=== PATIENT | female | born 1945 | race Caucasian/White ===

== ENCOUNTER 2016-09-18 11:48 | Day surgery (SDC) | payer MEDICARE, OTHER ==
[~2016-09-18] VITALS: Ht 175.3 cm; Wt 120.0 kg
[~2016-09-18 11:48] MED LIST: CHOL40003 PO; CYCL1DRO OCULAR; DILT360C30 PO; DULO60CA61 PO; FLAX100038 PO; FUR20 PO; LOSA100T29 PO; LOVA40TA PO; Lactated Ringer's 1,000 ML IV ONE; MAGN400T4 PO; MULT-1018 PO; SPIR50TA2 PO; TRIA10.8 NS
[2016-09-18] MEDS ORDERED: Propofol 10,000 mCg/mL 20 mL Inj ONE (11:49)
[2016-09-18] MEDS ORDERED: fentaNYL-PF 50 mCg/mL 2 mL Inj ONE (11:49)
--- NOTE | 2016-09-18 12:56 | PCM.HPANE ---
Patient Data Surgeon Admitting Provider: Attending Provider:Akhil Huff MD Primary Care Physician:Homar Santoyo MD Other Provider:Michelle Reynoldsingham Anesthesia Reason for Visit Diarrhea Ht/WT & BMI Body Mass Index Allergies Coded Allergies: TAPE (Verified Allergy, Unknown, REACTION TO IT, 12/15/05) hydrocodone (Verified Adverse Reaction, Mild, N/V, 05/17/09) Past Anesthesia History Anesthesia History: Denies:: Anesthesia Reactions Diabetes History Hx Diabetes?: No MRSA MRSA: No Medications Reported Medications Cholecalciferol (Vitamin D3) (Vitamin D3)4,000 Unit Capsule4,000 Unit PO DAILY 09/17/16 Spironolactone 50 Mg Kmnnkg01 Mg PO DAILY #30 TABLET Ref 0 09/17/16 Cyclosporine (Restasis)1 Each Droperette1 Each OCULAR BID 09/17/16 Triamcinolone Acetonide (Nasacort)10.8 Ml Spray55 Mcg NS DAILY 09/17/16 Multivitamin (Multi Vitamin Daily)1 Each Tablet1 Each PO DAILY 30 Days Ref 0 09/17/16 Lovastatin 40 Mg Hwvnfp78 Mg PO HS #30 TABLET Ref 0 09/17/16 Losartan Potassium 100 Mg Uzmqti697 Mg PO DAILY 09/17/16 Furosemide 20 Mg Tab20 Mg PO DAILY 30 Days Ref 0 09/17/16 Flaxseed Oil ([place]-3 Flaxseed Oil)1,000 Mg Capsule1,300 Mg PO DAILY 09/17/16 Duloxetine 60 Mg Capsule.dr60 Mg PO DAILY Ref 0 09/17/16 Diltiazem ER 360 Mg Capsule.er360 Mg PO DAILY Ref 0 09/17/16 Discontinued Reported Medications Magnesium Oxide 400 Mg Huvbvg010 Mg PO DAILY 09/17/16 History History of ENT Problems?: Yes HEENT History: Positive for:: Sinus Problem (intermittent) Denies:: Cataracts Dysphagia Cardiovascular History: Positive for:: Edema (hands swell recently) Heart Murmur Hypertension (takes diovan for BP) Denies:: Cardiac Surgery Chest Pain Congestive Heart Failure Irregular Heartbeat Pacemaker Thrombophlebitis Respiratory History: Positive for:: Pneumonia (walking pneumonia several times , last in 6-8 yrs) Denies:: Asthma COPD Chest Surgery Dyspnea Emphysema Hemoptysis Tuberculosis Hx Neurologic Problems?: No Neurological History: Positive for:: Headaches (occasional) Denies:: Alzheimer's Disease CVA Dementia Dizziness Parkinson's Disease Seizures Hx of GI Problems?: Yes Gastrointestinal History: Positive for:: Diverticulitis Heartburn (takes prilosec) Denies:: Gastrointestinal Bleeding Hepatitis Hiatal Hernia Rectal Bleeding Genitourinary History: Positive for:: Kidney Stones (had in last aug) Urinary Tract Infection Female Hx: Denies:: Endometriosis Pelvic Inflammatory Musculoskeletal History: Positive for:: Back Injury (last 6 months increased back pain) Denies:: Joint Replacement Musculoskeletal Trauma Psycho Social History: Positive for:: Anxiety (takes trazadone PRN) Denies:: Bipolar Disorder Hx Depression Hx Surgeries?: Yes (gallstones, kidney stones. laminectomy, ovarian cyst removed,polyp on vocal) Other History: Positive for:: Hospitalization (gallstones and kidney stones most recently 2004) Denies:: Cancer Thyroid Disease History Blood Transfusions: Denies:: Blood Transfusions Hx Diabetes: No Hx Alcohol Use: Yes (1 or two glasses of wine or beer a week)Hx Substance Use: No Stop/Bang Risk Assessment Category Category 1A: Patient has history of documented sleep apnea, and HAS NOT received any narcotic, sedative or anesthesia administration during this stay. Category 1B: Patient has history of documented sleep apnea, and HAS received any narcotic , sedative or anesthesia administration during this stay Category 2: Patient has SUSPECTED Obstructive Sleep Apnea, and HAS received any narcotic , sedative or anesthesia administration during this stay. Category 3: Patient has SUSPECTED Obstructive Sleep Apnea and HAS NOT received narcotic, sedative or anesthesia administration during this stay. Category 4: Outpatient in Procedural Areas with known sleep apnea or who screen positive for High Risk via the STOP/BANG questionnaire. Exam Exam General Appearance: Alert, Oriented X3, Cooperative, No Acute Distress HEENT/AIRWAY: MP 2 Lungs: Clear to Auscultation Heart: Exam Unremarkable Plan Impression Patient chart reviewed, patient interviewed and anesthestic plan with risks, benefits, and alternatives discussed, and informed consent obtained. ASA Physical Status: ASA2 Mod Systemic Disease Anesthetic Plan: MAC Bene/Risks/Altern/Consents: Yes HP Complete Prior to Induction: Yes Cy Tyler MD Sep 18, 2016 08:12
[2016-09-18 13:02] VITALS: BP 120/47; PULSE 54; RESP 16; O2SAT 94
[2016-09-18 13:30] VITALS: BP 102/54; PULSE 48; RESP 14; O2SAT 96
--- NOTE | 2016-09-18 13:34 | PCM.ANEP2 ---
Post Anesthesia Evaluation ASA/CMS Post Anesthesia VS in Patient's Normal Range?: Yes Resp Stable; Airway Patent?: Yes CV Function & Hydration Stable: Yes Mental Status Recovered?: Yes Pain control Satisfactory?: Yes N/V Control Satisfactory?: Yes Cy Tyler MD Sep 18, 2016 13:33
[2016-09-18 13:40] VITALS: BP 115/54; PULSE 50; RESP 14; O2SAT 94
--- NOTE | 2016-09-18 13:41 | ENDO ---
[address] [address] ENDOSCOPY PROCEDURE PATIENT: BRITTON GARAY : 1945 MR#: [id number] ADMIT: 09/18/2016 JOB ID: [id number] TYPE OF OPERATION: Colonoscopy with biopsy. PREOPERATIVE DIAGNOSIS(ES): Diarrhea. POSTOPERATIVE DIAGNOSIS(ES): 1. Severe diverticulosis, sigmoid. 2. Small internal hemorrhoids. ANESTHESIA: Monitored anesthesia. COMPLICATIONS: None. BLOOD LOSS: Minimal. DESCRIPTION OF PROCEDURE: After risks and benefits explained to patient, informed consent was obtained. After anesthesia administered, colonoscope was inserted from the rectum to cecum. Mucosa examined. Prep of the patient was fair. After the procedure was done, the scope withdrawn.. FINDINGS: Upon inspection of anus, no masses, hemorrhoids, ulcers, fissures that were seen. Throughout the entire examination, there were no polyps, masses, or lesions. There was severe sigmoid diverticulosis. Biopsies taken in the terminal ileum, retroflexion showed small internal hemorrhoids. IMPRESSION: 1. Small internal hemorrhoids.. 2. Severe diverticulosis. RECOMMENDATION: Await pathology results. High-fiber diet. Follow up in GI clinic as needed.
[2016-09-18 13:50] VITALS: BP 107/52; PULSE 50; RESP 14; O2SAT 97
--- NOTE | 2016-09-20 13:31 | PATH ---
SURGICAL PATHOLOGY Attending Physician:Akhil Huff MD CASE STATUS: Signed Out PATIENT NAME: BRITTON GARAY PID: [id number] : 1945 DATE COLLECTED:09/18/2016 22:30 SPECIMEN: 1: Ileum, Biopsy 2: Colon, Biopsy CLINICAL HISTORY: 1). TERMINAL ILEUM BIOPSY 2). RANDOM COLON BIOPSIES FINAL DIAGNOSIS: 1.TERMINAL ILEUM, BIOPSY: SMALL BOWEL MUCOSA WITH NO DIAGNOSTIC ABNORMALITY. Negative for active inflammation, dysplasia and malignancy. 2.RANDOM COLON, BIOPSIES: COLONIC MUCOSA WITH NO DIAGNOSTIC ABNORMALITY. Negative for active, chronic and microscopic colitis. Negative for dysplasia and malignancy. ICD10 code R10.9 GROSS DESCRIPTION: The specimen is received in two formalin filled containers labeled with the patient's name. 1). The specimen is sublabeled "terminal ileum" and consists of a 0.4 x 0.3 x 0.2 CM portion of tissue which is entirely submitted in cassette 1A. 2). The specimen is sublabeled "random colon" and consists of 5 portions of tissue which aggregate to 0.6 x 0.6 x 0.3 CM. The specimen is entirely submitted in cassette 2A. 09/19/2016 [facility] MICRO DESCRIPTION: See diagnosis. ICD-9 CODES: CPT CODES: 1: 79019 2: 62226 Electronically Signed Out Sheela Tariq MD [facility] Pathology [facility] [address], [place] [address] Technical component performed at [facility], [facility] [address], [place], [address]
== END 2016-09-18 23:59 | disposition home or self-care (01) ==
LOC: END 11:48
PROVIDERS: ATTEND Internal Medicine Gastroenterology
DX: K57.30 Diverticulosis of large intestine without perforation or abscess without bleeding (principal); K64.8 Other hemorrhoids; R19.7 Diarrhea, unspecified; I10 Essential (primary) hypertension; G47.33 Obstructive sleep apnea (adult) (pediatric); E78.00 Pure hypercholesterolemia, unspecified; K21.9 Gastro-esophageal reflux disease without esophagitis; Z87.442 Personal history of urinary calculi; F41.9 Anxiety disorder, unspecified
CPT/HCPCS: 45380; 88305; J3010; J7120